=== PATIENT | female | born 1995 | race African-American/Black ===

== ENCOUNTER 2018-11-07 05:20 | Day surgery (SDC) | payer MEDICAID ==
[~2018-11-07] VITALS: Ht 165.1 cm; Wt 91.6 kg
[2018-11-07] MEDS ORDERED: LACTATED RINGERS 1,000 ML IV SCH (06:00)
[2018-11-07 06:16] LABS: CHLORIDE 110 mEq/L (98-107)
[2018-11-07 06:18] LABS: BASOPHILS % 0.2 % (0.0-2.0); EOSINOPHILS % 0.5 % (0.0-5.0); HEMATOCRIT. 37.9 % (36.0-48.0); HEMOGLOBIN. 12.3 g/dL (12.0-16.0); LYMPHOCYTES % 17.7 % (20.0-50.0); MEAN CORPUSCULAR HEMOGLOBIN 29.4 pg (28.0-32.0); MEAN CORPUSCULAR VOLUME 90.5 fL (81.0-99.0); MONOCYTES % 8.2 % (2.0-8.0); NEUTROPHILS % 73.4 % (40.0-76.0); PLATELET 217 x1000/uL (130-400); RED BLOOD CELL COUNT 4.19 mill/uL (4.2-5.4); RED CELL DISTRIBUTION WIDTH 13.5 % (11.6-14.6)
[2018-11-07] MEDS ORDERED: INDOMETHACIN 50MG CAPSULE PO ONE (06:20)
[2018-11-07 06:22] LABS: PARTIAL THROMBOPLASTIN TIME 28.4 sec (23.4-31.0); PROTHROMBIN TIME 10.3 sec (9.1-11.1)
[2018-11-07 06:28] LABS: CLARITY URINE CLEAR (CLEAR); COLOR URINE YELLOW (YELLOW); KETONES URINE NEGATIVE (NEGATIVE); LEUKOCYTE ESTERASE URINE 2+ (NEGATIVE); NITRITE URINE NEGATIVE (NEGATIVE); OCCULT BLOOD URINE NEGATIVE (NEGATIVE); PH URINE 5.5 (4.5-8.0); PROTEIN URINE NEGATIVE (NEGATIVE); SPECIFIC GRAVITY URINE 1.021 (1.005-1.030); UROBILINOGEN URINE 0.2 E.U./dL (0.2-1.0)
[2018-11-07] MEDS ORDERED: BUPIVACAINE HCL/PF 0.25% (2.5MG/ML) 10ML ONE (07:21)
[2018-11-07] MEDS ORDERED: BUPIVACAINE HCL/DEXTROSE/PF 0.75% 2ML AMP INJ ONE (07:23)
[2018-11-07] MEDS ORDERED: CEFAZOLIN SODIUM 1000MG/VIAL ONE (07:35)
[2018-11-07] MEDS ORDERED: CHOL200074 PO (07:38)
[2018-11-07] MEDS ORDERED: PNV1TABL76 PO (07:38)
[2018-11-07] MEDS ORDERED: ASPI-1159 PO (07:38)
[2018-11-07] MEDS ORDERED: PROG100C5 PO (07:38)
[2018-11-07] MEDS ORDERED: ONDANSETRON HCL 4MG/2ML INJ IV PRN (08:45)
== END 2018-11-07 12:50 | disposition home or self-care (01) ==
LOC: OR 05:20
PROVIDERS: ATTEND Acupuncturist
DX: N88.3 Incompetence of cervix uteri (principal); O26.892 Other specified pregnancy related conditions, second trimester; Z3A.17 17 weeks gestation of pregnancy; Z79.899 Other long term (current) drug therapy; Z79.01 Long term (current) use of anticoagulants; Z98.890 Other specified postprocedural states; Z88.8 Allergy status to other drugs, medicaments and biological substances
CPT/HCPCS: 36415; 59320; 80048; 81003; 85025; 85610; 85730; 86850; 86900; 86901; 87086; J0690; J3490